=== PATIENT | female | born 1975 | race Caucasian/White ===

== ENCOUNTER 2019-06-29 20:19 | Inpatient (IN) | payer OTHER ==
[~2019-06-29] VITALS: Ht 162.6 cm; Wt 47.3 kg
--- NOTE | 2019-06-29 20:39 | NUR ---
pt came in to ER with c/o of pain on right side of cheek. she has swelling on the right cheek that occurred this morning. she claims that she woke up with this swelling. [id number]. no SOB. breathing evenly and unlabored. will continue to monitor
[2019-06-29] MEDS ORDERED: CLINDAMYCIN 600 MG in IV D5W 100 ML IV ONE (21:00)
[2019-06-29] MEDS ORDERED: CLINDAMYCIN 900 MG/6 ML VIAL ONE (21:16)
[2019-06-29 21:20] LABS: BASOPHILS # (AUTO) 0.1 /CMM (0.0-0.2); BASOPHILS % (AUTO) 0.7 % (0.0-2.0); EOSINOPHILS % (AUTO) 2.5 % (0.0-6.0); HEMATOCRIT 43 % (33-45); HEMOGLOBIN 13.8 g/dL (11.5-14.8); LYMPHOCYTES # (AUTO) 2.2 /CMM (0.8-4.8); LYMPHOCYTES % (AUTO) 17.6 % (20.0-44.0); MEAN CORPUSCULAR HGB CONC 32 g/dl (31.0-36.0); MEAN CORPUSCULAR VOLUME 86 fL (82-100); MONOCYTES # (AUTO) 1.1 /CMM (0.1-1.30); MONOCYTES % (AUTO) 8.8 % (2.0-12.0); NEUTROPHILS # (AUTO) 8.8 /CMM (1.8-8.9); NEUTROPHILS % (AUTO) 70.4 % (43.0-81.0); PLATELET COUNT (AUTO) 312 /CMM (150-450); RED BLOOD CELL COUNT(AUTO) 4.98 MIL/uL (4.0-5.2); WHITE BLOOD COUNT (AUTO) 12.5 K/uL (4.3-11.0)
[2019-06-29 21:29] LABS: CALCIUM, SERUM 8.7 mg/dL (8.5-10.1); CREATININE 0.7 mg/dL (0.6-1.3); POTASSIUM 3.4 mmol/L (3.5-5.1)
[2019-06-29] MEDS ORDERED: ONDANSETRON HCL/PF 4 MG/2 ML VIAL ONE (21:35)
[2019-06-29] MEDS ORDERED: IOHEXOL-300 100 ML VIAL IV ONE (21:43)
[2019-06-29] MEDS ORDERED: IV NS 0.9% 250 ML IV ONE (21:43)
[2019-06-29] MEDS ORDERED: CT SWABBABLE VALVE TRANS SET 1 EA INFUS.SET MC ONE (21:43)
--- NOTE | 2019-06-29 21:47 | NUR ---
pt sent to CT
[2019-06-29] MEDS ORDERED: POTASSIUM CHLORIDE 20 MEQ TAB.PRT.SR PO ONE (22:00)
[2019-06-29] MEDS ORDERED: MORPHINE SULFATE INJ 2 MG/ML DISP.SYRIN IV ONE (22:00)
[2019-06-29] MEDS ORDERED: ONDANSETRON HCL/PF - ER 4 MG/2 ML VIAL IV ONE (22:00)
--- NOTE | 2019-06-29 22:54 | NUR ---
CALLED OFFICE OF GUEVARA WONG MD
--- NOTE | 2019-06-29 22:59 | NUR ---
Yani malik in ED - 06/29/19 at [email or web address] LOWE ON PHONE W/ DR. OLIVERA FOR CONSULT.
--- NOTE | 2019-06-29 22:59 | NUR ---
ALTON GILL TALKING TO DR. LOWE REGARDING PT.
[2019-06-29] MEDS ORDERED: VANCOMYCIN 500 MG VIAL ONE (23:20)
[2019-06-29] MEDS ORDERED: HYDROMORPHONE 1 MG/1 ML DISP.SYRIN ONE (23:21)
[2019-06-29] MEDS ORDERED: VANCOMYCIN 1 GM VIAL ONE (23:21)
[2019-06-29] MEDS ORDERED: HYDROMORPHONE 1 MG/1 ML DISP.SYRIN IV ONE (23:30)
[2019-06-29] MEDS ORDERED: VANCOMYCIN HCL 1.25 GM in IV D5W 260 ML IV ONE (23:30)
--- NOTE | 2019-06-30 00:22 | NUR ---
RECEIVED VERBAL AUTHORIZATION FOR ADMISSION FR RYAN Freitas/ MEDIC[facility] .
--- NOTE | 2019-06-30 00:28 | NUR ---
[facility] [phone]
--- NOTE | 2019-06-30 00:46 | NUR ---
REPOTR GIVEN TO NOEMY RINCON FOR ARSLAN.
--- NOTE | 2019-06-30 00:54 | NUR ---
DR MYNOR WATERMAN
[2019-06-30] MEDS ORDERED: IV D5/0.45 NACL 1,000 ML IV PRN (01:03)
[2019-06-30 01:05] VITALS: BP 140/83
--- NOTE | 2019-06-30 01:05 | NUR ---
RN NOTES RECEIVED PT. FROM ER WITH DX. DEEP SOFT TISSUE MAXILLARY ABSCESS, A/OW, AMBULATORY, WITH RIGHT FACIAL SWELLING, DENIES PAIN AT THIS TIME, NO SOB, ADMISSION INSTRUCTION WAS GIVEN, CALL LIGHT WITHIN REACH, [id number], CONTINUE TO MONITOR
[2019-06-30 01:07] VITALS: BP 140/83
[2019-06-30] MEDS ORDERED: MAG HYDROX/AL HYDROX/SIMETH 30 ML UDC PO PRN (01:30)
[2019-06-30] MEDS ORDERED: MAGNESIUM HYDROXIDE 30 ML UDC PO PRN (01:30)
[2019-06-30] MEDS ORDERED: ONDANSETRON HCL/PF 4 MG/2 ML VIAL IVP PRN (01:30)
[2019-06-30] MEDS ORDERED: MORPHINE SULFATE INJ 2 MG/ML DISP.SYRIN IV PRN (01:30)
[2019-06-30] MEDS ORDERED: HYDROCODONE/APAP 5/325MG 1 EACH TABLET PO PRN (01:30)
[2019-06-30] MEDS ORDERED: ACETAMINOPHEN 325 MG TABLET PO PRN (01:30)
[2019-06-30] MEDS ORDERED: POTASSIUM CHLORIDE 20 MEQ TAB.PRT.SR PO ONE (01:30)
[2019-06-30] MEDS ORDERED: CLINDAMYCIN 900 MG/6 ML VIAL ONE (04:38)
[2019-06-30] MEDS ORDERED: CLINDAMYCIN 900 MG in IV D5W 50 ML IV SCH (05:00)
--- NOTE | 2019-06-30 06:36 | NUR ---
RN NOTES SLEEPING BUT AROUSABLE, MORNING CARE RENDERED, DENIES PAIN, NO SOB, CALL LIGHT WITHIN REACH, SIDERAILS UPX2, PT. NEEDS ATTENDED
[2019-06-30 06:49] LABS: CALCIUM, SERUM 8.5 mg/dL (8.5-10.1); CREATININE 0.6 mg/dL (0.6-1.3); MAGNESIUM 1.6 mg/dL (1.8-2.4); PHOSPHORUS 3.2 mg/dL (2.5-4.9); POTASSIUM 4.1 mmol/L (3.5-5.1)
[2019-06-30 06:52] LABS: BASOPHILS # (AUTO) 0.1 /CMM (0.0-0.2); BASOPHILS % (AUTO) 0.4 % (0.0-2.0); EOSINOPHILS % (AUTO) 1.8 % (0.0-6.0); HEMATOCRIT 41 % (33-45); HEMOGLOBIN 12.9 g/dL (11.5-14.8); LYMPHOCYTES # (AUTO) 1.9 /CMM (0.8-4.8); LYMPHOCYTES % (AUTO) 14.1 % (20.0-44.0); MEAN CORPUSCULAR HGB CONC 32 g/dl (31.0-36.0); MEAN CORPUSCULAR VOLUME 86 fL (82-100); MONOCYTES # (AUTO) 1.2 /CMM (0.1-1.30); MONOCYTES % (AUTO) 9.2 % (2.0-12.0); NEUTROPHILS % (AUTO) 74.5 % (43.0-81.0); PLATELET COUNT (AUTO) 282 /CMM (150-450); RED BLOOD CELL COUNT(AUTO) 4.74 MIL/uL (4.0-5.2); WHITE BLOOD COUNT (AUTO) 13.5 K/uL (4.3-11.0)
[2019-06-30 07:04] LABS: THYROID STIMULATING HORMONE 1.002 uIU/mL (0.358-3.74)
[2019-06-30 07:14] LABS: BILIRUBIN,DIRECT 0.1 mg/dL (0.0-0.2); BILIRUBIN,TOTAL 0.4 mg/dL (0.2-1.0); TOTAL PROTEIN, SERUM 6.1 g/dL (6.4-8.2)
[2019-06-30] MEDS ORDERED: PANTOPRAZOLE 40 MG TABLET.DR PO SCH (07:30)
--- NOTE | 2019-06-30 07:30 | NUR ---
RN MS AM NOTES PATIENT IN BED SLEEPING,EASILY WAKES UP TO NAME AND TOUCH, ON ROOM AIR, NO SOB, RESPIRATION UNLABORED, DENIES ANY PAIN OR DISCOMFORT AT THIS TIME, IV SITE TO LEFT AC #20 G FLUSHES WELL, IVF RUNNING ORDERED, SITE CLEAR, SEE NURSING FLOWSHEET FOR SKIN ISSUES. NPO FOR NOW. AWAITING ID CONSULT PATIENT REMAINS COMFORTABLE AT THIS TIME, WILL CONTINUE TO MONITOR.NEEDS ANTICIPATED,SAFETY MEASURES IN PLACE.WILL CONTINUE TO MONITOR.
[2019-06-30 08:00] VITALS: BP 141/78
[2019-06-30] MEDS ORDERED: LISI1TAB28 PO (08:27)
--- NOTE | 2019-06-30 09:30 | NUR ---
RN NOTES DUE MEDS GIVEN
[2019-06-30] MEDS: Magnesium 1GM/D5W 100ML PREMIX 100 ML IV SCH ×2 (10:37→11:51)
[2019-06-30] MEDS ORDERED: VANCOMYCIN HCL 1.25 GM in IV D5W 260 ML IV ONE (11:30)
[2019-06-30] MEDS ORDERED: FEE PK DOSING 1 MIN EA MC ONE (11:58)
[2019-06-30] MEDS ORDERED: PIPERACILLIN /TAZOBACTAM 3.375 G in IV D5W 50 ML IV SCH (12:00)
[2019-06-30] MEDS ORDERED: VANCOMYCIN 0.75 GM in IV D5W 250 ML IV SCH (12:00)
[2019-06-30 16:00] VITALS: BP 130/81
--- NOTE | 2019-06-30 17:55 | NUR ---
PERCUSSION INSTRUCTOR NOTES PATIENT WENT AMA DESPITE EXPLAINING THE RISK AND BENEFIT. PATIENT SEEN BY DR. DESIREE NUÑEZ AND INFECTIOUS DISEASE BUILDING SURVEYOR. BOTH EXPLAIN THE RISK OF NOT RECEIVING PROPER TREATMENT BUT PATIENT STILL INSIST ON GOING HOME. PROVIDED DC INSTRUCTIONS AND COPIES OF LABS AND AMA PAPER. BELONGINGS CHECKED AND RETURNED. IC ACCESS TO LEFT AC REMOVED, APPLIED PRESSURE, NO BLEEDING AND DRESSING IN PLACE. ALL PAPERS SIGNED. ACCOMPANIED BY NEIGHBOR/FRIEND TO LOBBY, WILL BE TRANSPORTED VIA PRIVATE CAR. Addendum: 06/30/19 at 1815 by RAZ LUCERO RN ADDENDUM: PATIENT DID NOT WANT ANY PHOTOS TAKEN ANYMORE, STATED SHE REALLY NEEDS TO GO HOME. Addendum: 06/30/19 at 1840 by RAZ LUCERO RN ADDENDUM: INCIDENT REPORT ON FILE Unique Id: [id number]
== END 2019-06-30 18:15 | disposition left against medical advice (07) | DRG 115 ==
LOC: ER 20:30 → MED 06-30 00:55
PROVIDERS: ADMIT Hospitalist; ATTEND Hospitalist
DX: M27.2 Inflammatory conditions of jaws (principal); E44.1 Mild protein-calorie malnutrition; L02.01 Cutaneous abscess of face; E83.42 Hypomagnesemia; I10 Essential (primary) hypertension; Z82.49 Family history of ischemic heart disease and other diseases of the circulatory system; Z82.3 Family history of stroke; J45.909 Unspecified asthma, uncomplicated; F17.210 Nicotine dependence, cigarettes, uncomplicated; J32.0 Chronic maxillary sinusitis; Z68.1 Body mass index [BMI] 19.9 or less, adult
CPT/HCPCS: 36415; 70487-TC; 80048-TC; 80053-TC; 80061-TC; 80076-TC; 83605-TC; 83735-TC; 84100-TC; 84443-TC; 85025-TC; 85652-TC; 87040-TC; 87081-TC; G0378; J1170; J2270; J2405; J2543; J3370; J3475; J3490; J7050; J7060; Q9967